=== PATIENT | female | born 1975 | race American Indian/Alaskan Native ===

== ENCOUNTER 2016-12-21 17:24 | Inpatient (IN) | payer MEDICARE ==
[2016-12-21] MEDS ORDERED: CATAPRES ONE (17:44)
[2016-12-21] MEDS ORDERED: TYLENOL ONE (17:46)
[2016-12-21] MEDS ORDERED: CATAPRES PO ONE (17:51)
[2016-12-21] MEDS ORDERED: TYLENOL PO ONE (17:52)
[2016-12-21 17:57] LABS: Hematocrit 42.1 % (30.3-42.9); Hemoglobin 14.1 gm/dl (10.1-14.3); Mean Corpuscular HGB Conc 34 % (30-34); Mean Corpuscular Hemoglobin 31 pg (28-32); Mean Corpuscular Volume 91 fl (79-97); Platelet Count 309 K/mm3 (140-440); Red Blood Count 4.64 M/mm3 (3.65-5.03); Red Cell Distribution Width 14.6 % (13.2-15.2); White Blood Count 14.6 K/mm3 (4.5-11.0)
[2016-12-21 18:18] LABS: Blood Urea Nitrogen 9 mg/dL (7-17); Calcium 9.1 mg/dL (8.4-10.2); Carbon Dioxide 24 mmol/L (22-30); Glucose 104 mg/dL (65-100)
[2016-12-21 18:19] LABS: Anion Gap 17 mmol/L; Chloride 98.2 mmol/L (98-107); Sodium 135 mmol/L (137-145)
[2016-12-21 18:50] LABS: Basophils % (Manual) 0 % (0.0-1.8); Blastocytes % (Manual) 0 %; Diff Status Complete; Large Platelets 1+; Platelet Estimate Consistent w Auto; RBC Morphology Normal
[2016-12-21 21:11] LABS: Bilirubin,Urine NEG (Negative); Blood,Urine MOD (Negative); Ketones,Urine NEG (Negative); Leukocyte Esterase,Urine NEG (Negative); Mucus,Urine FEW /HPF; Nitrite,Urine NEG (Negative); Urobilinogen,Urine < 2.0 mg/dL (<2.0)
[2016-12-21] MEDS ORDERED: ZOFRAN PO ONE (22:49)
[2016-12-21] MEDS ORDERED: ZOFRAN ODT ONE (23:08)
[2016-12-21] MEDS ORDERED: ZOFRAN IV ONE (23:19)
[2016-12-21] MEDS ORDERED: DILAUDID IV ONE (23:19)
[2016-12-21] MEDS ORDERED: ZOFRAN ODT PO ONE (23:45)
[2016-12-22 00:25] LABS: INR 0.95 (0.87-1.13); Partial Thromboplastin Time 21.3 Sec. (24.2-36.6)
--- NOTE | 2016-12-22 00:28 | Emergency Department Report ---
ED General Adult HPI - General Chief complaint: High BP Stated complaint: LFT LEG SWELLING Time Seen by Provider: 12/21/16 22:20 Source: patient Mode of arrival: Ambulatory Limitations: No Limitations - History of Present Illness Initial comments: 41 year female with a past medical history of breast cancer currently in remission and hypertension presents to the hospital with multiple complaints including chest pain, left leg pain, and rash. Complaint #1: chest pain 2 days. Describes it as indigestion gas-like feeling. However, patient does have GERD and this was different. Positive associated shortness of breath, nausea without vomiting. Also complains of pain to her left arm. No previous history of stress test, PE/or DVT. No recent travel or immobilization. Complaint #2: Left leg pain 2 days. Patient's pain to the left hip to the knee and states that it is worse with prolonged standing. Also intermittent edema worse with standing but improved with doubling up on her BP meds. Patient has noticed that her blood pressure has been poorly controlled with her started 25 mg daily as she has been taken 2 tablets noted to have better control of her blood pressure. Patient states that her left leg feels cold and tingling compared to the right Last week patient was seen in the urgent care for hives. She states she noticed a rash and bruising to her right thigh as well. Pt does have a PMD which is new but she has not seen him yet. Her oncologist is [facility]. Her breast cancer is in remission and she no longer has a port Severity scale (0 -10): 5 - Related Data Home Medications Medication Instructions Recorded Confirmed Last Taken Losartan [Cozaar] 50 mg PO QDAY 05/12/16 12/21/16 Unknown Amoxicillin 500 mg PO BID 12/21/16 12/21/16 Unknown Previous Rx's Medication Instructions Recorded Last Taken Type HYDROcodone/APAP 5-325 [[place] 1 each PO Q12H PRN #10 tablet 12/22/16 Unknown Rx 5-325 mg TAB] Ranitidine HCl [Zantac 150 MG TAB] 150 mg PO DAILY #30 tablet 12/22/16 Unknown Rx Allergies Allergy/AdvReac Type Severity Reaction Status Date / Time No Known Allergies Allergy Verified 05/12/16 12:52 ED Review of Systems ROS: Stated complaint: LFT LEG SWELLING Other details as noted in HPI Comment: All other systems reviewed and negative Other: Constitutional: No fevers chills Eyes: No eye pain visual changes ENT: No ear pain or throat pain Neck: Denies pain Respiratory: Denies cough wheezing Cardiovascular: Denies palpitations, syncope GI: Denies abdominal pain, nausea, vomiting, diarrhea : Denies dysuria Musculoskeletal: Denies back pain Skin: as per hpi Neurologic: Denies headache, numbness, weakness ED Past Medical Hx - Past Medical History Hx Hypertension: Yes Additional medical history: lesion on liver , 2x breast CA surviver - Surgical History Hx Cholecystectomy: Yes Hx Breast Surgery: Yes Additional Surgical History: 4 - Social History Smoking Status: Never Smoker Substance Use Type: None - Medications Home Medications: Home Medications Medication Instructions Recorded Confirmed Last Taken Type Losartan [Cozaar] 50 mg PO QDAY 05/12/16 12/21/16 Unknown History Amoxicillin 500 mg PO BID 12/21/16 12/21/16 Unknown History HYDROcodone/APAP 5-325 [[place] 1 each PO Q12H PRN #10 tablet 12/22/16 Unknown Rx 5-325 mg TAB] Ranitidine HCl [Zantac 150 MG TAB] 150 mg PO DAILY #30 tablet 12/22/16 Unknown Rx ED Physical Exam - General Limitations: No Limitations - Other Other exam information: General: No limitations, patient is alert in no acute distress Head exam: Atraumatic, normocephalic Eyes exam: Normal appearance, pupils equal reactive to light, extraocular movements intact ENT: Moist mucous membrane, normal oropharynx Neck exam: Normal inspection, full range of motion, no meningismus nontender Respiratory exam: Clear to auscultation bilateral, no wheezes, rales, crackles Cardiovascular: Normal rate and rhythm, normal heart sounds, chest wall nontender Abdomen: Soft, nondistended, and nontender, with normal bowel sounds, no rebound, or guarding Extremity: Full range of motion normal inspection no deformity, no calf tenderness or edema noted, 2+ DP pulse. Mild tenderness to the knee worse with movement but no calf tenderness or thigh tenderness upon palpation Back: Normal Inspection, full range of motion, no tenderness Neurologic: Alert, oriented x3, cranial nerves intact, no motor or sensory deficit Psychiatric: normal affect, normal mood Skin: Circular dark red/purple lesion less than 1 cm noted to anterior right thigh that is nonblanching, no hives or other rash noted ED Course Vital Signs 12/21/16 12/21/16 12/21/16 17:30 17:52 20:19 Temperature 98.4 F 98.4 F Pulse Rate 114 H 114 H 95 H Respiratory 18 18 18 Rate Blood Pressure 159/115 159/115 136/106 Blood Pressure [Right] O2 Sat by Pulse 100 99 Oximetry 12/21/16 12/21/16 12/22/16 22:44 23:12 04:54 Temperature 97.8 F Pulse Rate 84 84 Respiratory 20 18 18 Rate Blood Pressure Blood Pressure 147/110 156/100 [Right] O2 Sat by Pulse 99 100 100 Oximetry 12/22/16 12/22/16 12/22/16 07:20 07:58 08:18 Temperature 97.6 F Pulse Rate 84 75 117 H Respiratory 20 Rate Blood Pressure 144/99 144/99 Blood Pressure 103/74 [Right] O2 Sat by Pulse 100 Oximetry 12/22/16 12/22/16 12/22/16 08:19 08:20 08:21 Temperature Pulse Rate 116 H 113 H 96 H Respiratory Rate Blood Pressure 144/87 146/86 147/80 Blood Pressure [Right] O2 Sat by Pulse Oximetry - Reevaluation(s) Reevaluation #1: 12/22/16 00:33 laboratory helper had a needle stick therefore HIV and Hepatitis panel ordred with pt consent Reevaluation #2: 12/22/16 00:44 Patient requesting her Nexium and Zantac which she has to take every night due to severe GERD which can result in nausea and vomiting if she does not take her medication. She was given the equivalent of Pepcid and Protonix 12/22/16 00:49 Hr improved ED Medical Decision Making - Lab Data Result diagrams: 12/21/16 17:44 12/21/16 17:44 Lab Results 12/21/16 12/21/16 12/21/16 Range/Units 17:44 17:44 20:09 WBC 14.6 H (4.5-11.0) K/mm3 RBC 4.64 (3.65-5.03) M/mm3 Hgb 14.1 (10.1-14.3) gm/dl Hct 42.1 (30.3-42.9) % MCV 91 (79-97) fl MCH 31 (28-32) pg MCHC 34 (30-34) % RDW 14.6 (13.2-15.2) % Plt Count 309 (140-440) K/mm3 Lymph # It Consulting Manager Add Manual Diff Complete Total Counted 100 Seg Neuts % (Manual) 58.0 (40.0-70.0) % Band Neutrophils % 0 % Lymphocytes % (Manual) 38.0 H (13.4-35.0) % Reactive Lymphs % (Man) 0 % Monocytes % (Manual) 3.0 (0.0-7.3) % Eosinophils % (Manual) 1.0 (0.0-4.3) % Basophils % (Manual) 0 (0.0-1.8) % Metamyelocytes % 0 % Myelocytes % 0 % Promyelocytes % 0 % Blast Cells % 0 % Nucleated RBC % Not Reportable Seg Neutrophils # Man 8.5 H (1.8-7.7) K/mm3 Band Neutrophils # 0.0 K/mm3 Lymphocytes # (Manual) 5.5 H (1.2-5.4) K/mm3 Abs React Lymphs (Man) 0.0 K/mm3 Monocytes # (Manual) 0.4 (0.0-0.8) K/mm3 Eosinophils # (Manual) 0.1 (0.0-0.4) K/mm3 Basophils # (Manual) 0.0 (0.0-0.1) K/mm3 Metamyelocytes # 0.0 K/mm3 Myelocytes # 0.0 K/mm3 Promyelocytes # 0.0 K/mm3 Blast Cells # 0.0 K/mm3 WBC Morphology Not Reportable Hypersegmented Neuts Not Reportable Hyposegmented Neuts Not Reportable Hypogranular Neuts Not Reportable Smudge Cells Not Reportable Toxic Granulation Not Reportable Toxic Vacuolation Not Reportable Dohle Bodies Not Reportable Pelger-Huet Anomaly Not Reportable Marzena Rods Not Reportable Platelet Estimate Consistent w auto Clumped Platelets Not Reportable Plt Clumps, EDTA Not Reportable Large Platelets 1+ Giant Platelets Not Reportable Platelet Satelliting Not Reportable Plt Morphology Comment Not Reportable RBC Morphology Normal Dimorphic RBCs Not Reportable Polychromasia Not Reportable Hypochromasia Not Reportable Poikilocytosis Not Reportable Anisocytosis Not Reportable Microcytosis Not Reportable Macrocytosis Not Reportable Spherocytes Not Reportable Pappenheimer Bodies Not Reportable Sickle Cells Not Reportable Target Cells Not Reportable Tear Drop Cells Not Reportable Ovalocytes Not Reportable Helmet Cells Not Reportable [place] Bodies Not Reportable Burket Rings Not Reportable [place] Cells Not Reportable Bite Cells Not Reportable Crenated Cell Not Reportable Elliptocytes Not Reportable Acanthocytes (Spur) Not Reportable Rouleaux Not Reportable Hemoglobin C Crystals Not Reportable Schistocytes Not Reportable Malaria parasites Not Reportable Jamaal Bodies Not Reportable Hem Pathologist Commnt No PT (12.2-14.9) Sec. INR (0.87-1.13) APTT (24.2-36.6) Sec. D-Dimer (0-234) ng/mlDDU Sodium 135 L (137-145) mmol/L Potassium 4.0 (3.6-5.0) mmol/L Chloride 98.2 (98-107) mmol/L Carbon Dioxide 24 (22-30) mmol/L Anion Gap 17 mmol/L BUN 9 (7-17) mg/dL Creatinine 0.9 (0.7-1.2) mg/dL Estimated GFR > 60 ml/min BUN/Creatinine Ratio 10.00 % Glucose 104 H (65-100) mg/dL Calcium 9.1 (8.4-10.2) mg/dL Troponin T < 0.010 < 0.010 (0.00-0.029) ng/mL Urine Color (Yellow) Urine Turbidity (Clear) Urine pH (5.0-7.0) Ur Specific [place] (1.003-1.030) Urine Protein (Negative) mg/dL Urine Glucose (UA) (Negative) mg/dL Urine Ketones (Negative) mg/dL Urine Blood (Negative) Urine Nitrite (Negative) Urine Bilirubin (Negative) Urine Urobilinogen (<2.0) mg/dL Ur Leukocyte Esterase (Negative) Urine WBC (Auto) (0.0-6.0) /HPF Urine RBC (Auto) (0.0-6.0) /HPF U Epithel Cells (Auto) (0-13.0) /HPF Urine Mucus /HPF 12/21/16 12/21/16 12/21/16 Range/Units 20:21 23:50 23:50 WBC (4.5-11.0) K/mm3 RBC (3.65-5.03) M/mm3 Hgb (10.1-14.3) gm/dl Hct (30.3-42.9) % MCV (79-97) fl MCH (28-32) pg MCHC (30-34) % RDW (13.2-15.2) % Plt Count (140-440) K/mm3 Lymph # Add Manual Diff Total Counted Seg Neuts % (Manual) (40.0-70.0) % Band Neutrophils % % Lymphocytes % (Manual) (13.4-35.0) % Reactive Lymphs % (Man) % Monocytes % (Manual) (0.0-7.3) % Eosinophils % (Manual) (0.0-4.3) % Basophils % (Manual) (0.0-1.8) % Metamyelocytes % % Myelocytes % % Promyelocytes % % Blast Cells % % Nucleated RBC % Seg Neutrophils # Man (1.8-7.7) K/mm3 Band Neutrophils # K/mm3 Lymphocytes # (Manual) (1.2-5.4) K/mm3 Abs React Lymphs (Man) K/mm3 Monocytes # (Manual) (0.0-0.8) K/mm3 Eosinophils # (Manual) (0.0-0.4) K/mm3 Basophils # (Manual) (0.0-0.1) K/mm3 Metamyelocytes # K/mm3 Myelocytes # K/mm3 Promyelocytes # K/mm3 Blast Cells # K/mm3 WBC Morphology Hypersegmented Neuts Hyposegmented Neuts Hypogranular Neuts Smudge Cells Toxic Granulation Toxic Vacuolation Dohle Bodies Pelger-Huet Anomaly Marzena Rods Platelet Estimate Clumped Platelets Plt Clumps, EDTA Large Platelets Giant Platelets Platelet Satelliting Plt Morphology Comment RBC Morphology Dimorphic RBCs Polychromasia Hypochromasia Poikilocytosis Anisocytosis Microcytosis Macrocytosis Spherocytes Pappenheimer Bodies Sickle Cells Target Cells Tear Drop Cells Ovalocytes Helmet Cells Casey-[place] Bodies Burket Rings [place] Cells Bite Cells Crenated Cell Elliptocytes Acanthocytes (Spur) Rouleaux Hemoglobin C Crystals Schistocytes Malaria parasites Jamaal Bodies Hem Pathologist Commnt PT 12.6 (12.2-14.9) Sec. INR 0.95 (0.87-1.13) APTT 21.3 L (24.2-36.6) Sec. D-Dimer 576.05 H (0-234) ng/mlDDU Sodium (137-145) mmol/L Potassium (3.6-5.0) mmol/L Chloride (98-107) mmol/L Carbon Dioxide (22-30) mmol/L Anion Gap mmol/L BUN (7-17) mg/dL Creatinine (0.7-1.2) mg/dL Estimated GFR ml/min BUN/Creatinine Ratio % Glucose (65-100) mg/dL Calcium (8.4-10.2) mg/dL Troponin T < 0.010 (0.00-0.029) ng/mL Urine Color Yellow (Yellow) Urine Turbidity Clear (Clear) Urine pH 5.0 (5.0-7.0) Ur Specific [place] 1.021 (1.003-1.030) Urine Protein 30 mg/dl (Negative) mg/dL Urine Glucose (UA) Neg (Negative) mg/dL Urine Ketones Neg (Negative) mg/dL Urine Blood Mod (Negative) Urine Nitrite Neg (Negative) Urine Bilirubin Neg (Negative) Urine Urobilinogen < 2.0 (<2.0) mg/dL Ur Leukocyte Esterase Neg (Negative) Urine WBC (Auto) 3.0 (0.0-6.0) /HPF Urine RBC (Auto) 11.0 (0.0-6.0) /HPF U Epithel Cells (Auto) 6.0 (0-13.0) /HPF Urine Mucus Few /HPF - EKG Data -: EKG Interpreted by Me (sinus tach rate [address] elevation or T-wave inversion) - Radiology Data Radiology results: report reviewed (cta chest neg), image reviewed (cxr: ) - Medical Decision Making Patient to be admitted to the hospital with further stress testing. CTA pending at disposition to rule out PE. Patient treated in the ED with Dilaudid , Zofran, Pepcid, and Prilosec - Differential Diagnosis NM, unstable angina, PE, DVT, MSK pain, CHF Critical Care Time: No Critical care attestation.: If time is entered above; I have spent that time in minutes in the direct care of this critically ill patient, excluding procedure time. ED Disposition Clinical Impression: Chest pain, Hypertension, uncontrolled, Leg pain Disposition: OP ADMITTED IP TO THIS HOSP Is pt being admited?: Yes Condition: Stable Time of Disposition: 00:51 (case d/w Dr. Mccabe. admission pending ct results. Requested Dr Cervantes to infom Dr mccabe when ct reults)
--- NOTE | 2016-12-22 00:38 | XRay Report ---
FINAL REPORT PROCEDURE: XR CHEST ROUTINE 2V TECHNIQUE: PA and lateral chest radiographs were obtained. CPT 81329 HISTORY: chest pain COMPARISON: No prior studies are available for comparison. FINDINGS: Heart: Normal. Mediastinum/Vessels: Normal. Lungs/Pleural space: Lungs are clear. There are no infiltrates, effusions or pneumothoraces.. Bony thorax: No acute osseous abnormality. Other: There is surgical clips in the left axilla. IMPRESSION: There is no acute cardiopulmonary abnormality..
[2016-12-22] MEDS ORDERED: DILAUDID IV ONE (00:39)
[2016-12-22] MEDS ORDERED: PEPCID PO ONE (00:43)
[2016-12-22] MEDS ORDERED: PROTONIX PO ONE (00:43)
[2016-12-22 01:00] LABS: HIV-1 Antigen p24 Non React (Non React); HIVR-1/2 Ab Non React (Non React)
[2016-12-22] MEDS ORDERED: NACL ONE (02:03)
[2016-12-22] MEDS: DILAUDID IV PRN ×2 (03:07→06:40)
--- NOTE | 2016-12-22 03:26 | Cat Scan Report ---
FINAL REPORT PROCEDURE: CT ANGIO CHEST TECHNIQUE: Computerized tomographic angiography of the chest was performed after the IV injection of iodinated nonionic contrast including image processing. The image data was postprocessed using 2-dimensional multiplanar reformatted (MPR) and 3-dimensional (MIP and/or volume rendered) techniques. HISTORY: sob, cp, elevated ddimer COMPARISON: No prior studies are available for comparison. FINDINGS: Heart and pericardium: Normal. Thoracic aorta: Normal. Pulmonary vasculature: Normal. Lymph nodes: No enlarged thoracic lymph nodes. Lungs: Normal. Pleural space: No effusion, thickening, or pneumothorax. Musculoskeletal structures: No significant abnormality. Upper abdominal structures: No significant abnormality. IMPRESSION: There is no evidence of pulmonary arterial emboli. The lungs are clear without infiltrate, effusion or pneumothorax.
--- NOTE | 2016-12-22 04:03 | History and Physical Report ---
History of Present Illness Date of examination: 12/22/16 Chief complaint: Chest pain History of present illness: Patient is a 41-year-old woman history of breast cancer currently in remission followed by an [facility] oncologist, GERD and hypertension who presents to the hospital with multiple complaints including chest pain, left leg pain and rash. The substernal chest pain is intermittent, moderately intense, nonradiating started 2 days ago, feels like gaseous pain is different than her typical GERD-like symptoms. She also had left arm pain but is not radiating from her chest. She denies any recent travel, PE or DVT or stress test or cardiac cath. The left leg pains started 2 days ago associated with swelling from her hip to her knee. She had a rash on her right hip proximal 2 weeks ago. She denies any severe headaches, cough, loss consciousness. He does have nausea without vomiting. Past medical history: As HPI Past surgical history: Patient had 25 different surgeries, Last surgery was a year ago for cosmetic purposes Social history: She denies tobacco, alcohol or drugs Family history: Early coronary artery disease in her sister who is younger than her, diabetes mellitus and hypertension Medications and Allergies Allergies Allergy/AdvReac Type Severity Reaction Status Date / Time No Known Allergies Allergy Verified 05/12/16 12:52 Home Medications Medication Instructions Recorded Confirmed Last Taken Type Losartan [Cozaar] 50 mg PO QDAY 05/12/16 12/21/16 Unknown History Amoxicillin 500 mg PO BID 12/21/16 12/21/16 Unknown History Nexium 24Hr 1 tab PO DAILY 12/21/16 12/21/16 Unknown History Ranitidine HCl [Zantac 150 MG TAB] 150 mg PO DAILY 12/21/16 12/21/16 Unknown History Active Meds: Active Medications Hydromorphone HCl (Dilaudid) 1 mg IV ONCE PRN PRN Reason: Pain , Severe (7-10) Last Admin: 12/22/16 03:07 Dose: 1 mg Review of Systems All systems: negative (as HPI and all other ROS reviewed and negative.) Exam - Physical Exam Narrative exam: GEN: WDWN, NAD, AWAKE, ALERT, ORIENTATED 3 HEENT: NCAT, PERRL, EOMI, OP CLEAR NECK: SUPPLE, NO THYROMEGALY, NO JVD, NO LAD CVS: RRR, NORMAL S1S2 LUNGS/CHEST: CTA B, NORMAL CHEST EXPANSION B, GOOD AIR ENTRY B ABD: SOFT, MILD EPIGASTRIC TENDERNESS WITHOUT DISTENTION, GBS, NO REBOUND OR GUARDING EXT/SKIN: NO SIGNIFICANT EDEMA OR RASH MSK: FROM X 4 EXTREMITIES NEURO: CN 2-12 GROSSLY INTACT, NO FOCAL DEFICITS PSY: CALM - Constitutional Vitals: Temp Pulse Resp BP Pulse Ox 97.8 F 84 18 147/110 100 12/21/16 22:44 12/21/16 22:44 12/21/16 23:12 12/21/16 22:44 12/21/16 23:12 Results - Labs CBC & Chem 7: 12/21/16 17:44 12/21/16 17:44 Labs: Abnormal lab results 12/21/16 12/21/16 12/21/16 Range/Units 17:44 17:44 23:50 WBC 14.6 H (4.5-11.0) K/mm3 Lymphocytes % (Manual) 38.0 H (13.4-35.0) % Seg Neutrophils # Man 8.5 H (1.8-7.7) K/mm3 Lymphocytes # (Manual) 5.5 H (1.2-5.4) K/mm3 APTT 21.3 L (24.2-36.6) Sec. D-Dimer 576.05 H (0-234) ng/mlDDU Sodium 135 L (137-145) mmol/L Glucose 104 H (65-100) mg/dL - Imaging and Cardiology EKG: image reviewed Chest x-ray: report reviewed CT scan - chest: report reviewed Assessment and Plan Patient is a 41-year-old woman history of breast cancer currently in remission followed by an [facility] oncologist, GERD and hypertension who presents to the hospital with multiple complaints including chest pain, left leg pain and rash. The substernal chest pain is intermittent, moderately intense, nonradiating started 2 days ago, feels like gaseous pain is different than her typical GERD-like symptoms. She also had left arm pain but is not radiating from her chest. She denies any recent travel, PE or DVT or stress test or cardiac cath. The left leg pains started 2 days ago associated with swelling from her hip to her knee. She had a rash on her right hip proximal 2 weeks ago. She denies any severe headaches, cough, loss consciousness. He does have nausea without vomiting. -Chest pain most likely GERD related to rule out ischemia: Stress test, treat with Protonix -Left leg pain history of breast cancer: Check venous Dopplers -GERD: PPI -DVT prophylaxis: Subcutaneous Lovenox -Accelerated hypertension: When necessary antihypertensive -SIRS without source of infection: continue to monitor, repeat wbc
[2016-12-22] MEDS ORDERED: NORCO 5/325 PO PRN (04:07)
[2016-12-22] MEDS ORDERED: ZOFRAN IV PRN (04:07)
[2016-12-22] MEDS ORDERED: TYLENOL PO PRN (04:07)
[2016-12-22] MEDS ORDERED: LEXISCAN IV ONE (08:01)
[2016-12-22] MEDS ORDERED: ASPIRIN PO ONE (08:23)
[2016-12-22] MEDS ORDERED: PROTONIX PO SCH (10:00)
[2016-12-22] MEDS ORDERED: PEPCID PO SCH (10:00)
[2016-12-22] MEDS ORDERED: NON-FORMULARY (Ranitidine Hcl [Zantac 150 Mg Tab] 150 MG) PO SCH (10:00)
[2016-12-22] MEDS ORDERED: COZAAR PO SCH (10:00)
[2016-12-22 10:36] VITALS: BP 135/87
--- NOTE | 2016-12-22 11:03 | Event Note ---
Date: 12/22/16 Nuclear stress test completed. No complications. Stress test shows small fixed apical defect, likely secondary to diaphragmatic attenuation. No ischemia. Low risk for signficant coronary artery disease. EF 65%.
--- NOTE | 2016-12-22 12:04 | Discharge Summary ---
Providers - Providers Date of Admission: 12/22/16 08:19 Date of discharge: 12/22/16 Attending physician: FRANKLYN DENG Primary care physician: ZACH MALONEY Hospitalization Reason for admission: left-sided chest pain Condition: Stable Pertinent studies: Chest x-ray; no acute cardiopulmonary abnormality noted CTA chest; no evidence of PE lungs clear without infiltrates or effusion or pneumothorax Nuclear stress test; negative for reversible ischemia preserved left ventricular function, ejection fraction 65% Lower extremity venous Doppler; negative for DVT Hospital course: Final diagnosis; Atypical chest pain/negative stress test Noncardiac chest pain/probably secondary to gastroesophageal reflux disease Costochondritis Hypertension Mild leukocytosis History of Possible UTI on antibiotics History of breast cancer in remission Brief history and hospital course: very pleasant 41-year-old female patient with significant past medical history of breast cancer in remission follows with oncologist at [facility] gastroesophageal reflux disease was admitted through emergency room with chest pain and leg pain and patient was initially evaluated and admitted to the hospital symptomatically managed patient had extensive evaluation with a chest x -ray CT angiogram of the chest lower extremity venous Doppler, nuclear stress test The reports are as mentioned above which was basically negative Patient's chest pain is probably secondary to noncardiac causes like gastroesophageal reflux disease and or costochondritis Patient's symptoms significantly improved today's comfortable in bed Alert awake oriented 3 not in acute distress Vitals vital signs are stable [id number] evaluation and physical examination Done by me prior to discharge summary remarkable as detailed below Patient is hemodynamically and clinically stable for discharge and does not need any further acute inpatient care at this time Disposition: DISCHARGED TO HOME OR SELFCARE Time spent for discharge: 31 min Core Measure Documentation - Palliative Care Palliative Care/ Comfort Measures: Not Applicable - Core Measures Any of the following diagnoses?: none Exam - Constitutional Vitals: Temp Pulse Resp BP Pulse Ox 98.2 F 92 H 20 135/87 95 12/22/16 10:26 12/22/16 10:34 12/22/16 10:26 12/22/16 10:34 12/22/16 10:26 General appearance: Present: no acute distress, well-nourished - EENT Eyes: Present: PERRL, EOM intact - Neck Neck: Present: supple, normal ROM - Respiratory Respiratory effort: normal Respiratory: negative: rales, rhonchi, wheezing - Cardiovascular Rhythm: regular Heart Sounds: Present: S1 & S2 - Extremities Extremities: no ischemia, pulses intact, pulses symmetrical Peripheral Pulses: within normal limits - Abdominal General gastrointestinal: Present: soft, non-tender, non-distended, normal bowel sounds - Integumentary Integumentary: Present: clear, warm - Musculoskeletal Musculoskeletal: strength equal bilaterally - Psychiatric Psychiatric: appropriate mood/affect, cooperative - Neurologic Neurologic: CNII-XII intact, moves all extremities Plan Activity: no restrictions Diet: other (cardiac diet) Additional Instructions: If you have chest pain or shortness of breath contact M.D. or go to emergency room Follow up with: ZACH MALONEY MD [Primary Care Provider] - 7 Days Prescriptions: HYDROcodone/APAP 5-325 [[place] 5-325 mg TAB] 1 each PO Q12H PRN #10 tablet PRN Reason: Pain, Moderate (4-6) Ranitidine HCl [Zantac 150 MG TAB] 150 mg PO DAILY #30 tablet
[2016-12-22] MEDS ORDERED: LOVENOX SUB-Q SCH (22:00)
--- NOTE | 2016-12-24 03:58 | Treadmill Report ---
THALLIUM STRESS TEST LEFT VENTRICLE: Left ventricular chamber size is within normal. Perfusion study demonstrates fairly homogeneous uptake of the tracer in all segments, with no significant perfusion defects identified. There is somewhat suboptimal study with significant GI uptake of the tracer. Gated analysis demonstrates normal left ventricular systolic function, ejection fraction 65%. CONCLUSION: Suboptimal perfusion study, no demonstrable ischemic coronary artery disease. Negative study. Clinical correlation is recommended. [facility]# [id number] CA/NTS
== END 2016-12-22 12:50 | disposition home or self-care (01) | DRG 206 ==
LOC: ED 17:24 → 4A 12-22 08:19
PROVIDERS: ADMIT Internal Medicine; ATTEND Internal Medicine
DX: M94.0 Chondrocostal junction syndrome [Tietze] (principal); R65.10 Systemic inflammatory response syndrome (SIRS) of non-infectious origin without acute organ dysfunction; K21.9 Gastro-esophageal reflux disease without esophagitis; I10 Essential (primary) hypertension; D72.829 Elevated white blood cell count, unspecified; Z85.3 Personal history of malignant neoplasm of breast; Z90.49 Acquired absence of other specified parts of digestive tract; Z82.49 Family history of ischemic heart disease and other diseases of the circulatory system; Z83.3 Family history of diabetes mellitus
CPT/HCPCS: 36415; 71020; 71275; 78452; 80048; 80074; 81001; 84484; 85007; 85025; 85379; 85610; 85730; 87040; 87806; 93005; 93010; 93017; 93970; 96374; 96375; 96376; A9502; J1170; J2405; Q0162; Q9967